=== PATIENT | male | born 1990 | race Hispanic/Latino ===

== ENCOUNTER 2021-08-11 10:25 | Observation (INO) | payer SELFPAY ==
[~2021-08-11] VITALS: Ht 170.2 cm; Wt 79.0 kg
--- NOTE | 2021-08-11 10:30 | NUR ---
PATIENT TO ROOM WITH A STEADY GAIT.
[2021-08-11 11:02] LABS: HEMATOCRIT 44.9 % (39.0-50.0); HEMOGLOBIN 15.9 g/dl (14.0-18.0); IMMATURE GRANULOCYTES 0.3 % (0.0-5.0); MEAN CELL VOLUME 87.5 fL CALC (80.0-100.0); MEAN CORPUSCULAR HGB CONC 35.4 g/dL CAL (32.0-36.0); RED BLOOD COUNT 5.13 mill/uL (4.70-6.10); RED CELL DISTRI WIDTH 11.9 % (11.5-15.5)
[2021-08-11 11:14] LABS: ALBUMIN 4.4 g/dL (3.2-5.0); ALKALINE PHOSPHATASE 58 u/l (38-126); AMYLASE 64 u/l (30-110); BILIRUBIN, TOTAL 0.5 mg/dL (0.0-1.4); BUN 15 mg/dL (9-20); BUN/CREATININE RATIO 21 (12-20 (CALC)); CARBON DIOXIDE 23 mmol/l (22-30); CHLORIDE 105 mmol/l (95-108); CREATININE 0.7 mg/dL (0.7-1.3); GFR > 60 ML/MIN (>=60 (CALC)); GFR FOR AFR.AMER. > 60 ML/MIN (>=60 (CALC)); LIPASE 58 u/l (23-300); POTASSIUM 4.1 mmol/l (3.5-5.1); SGOT/AST 35 u/l (17-59); TOTAL PROTEIN 7.9 g/dL (6.3-8.2)
[2021-08-11 11:20] LABS: ANION GAP 14 (6-22 (CALC)); SODIUM 138 mmol/l (137-146)
[2021-08-11 12:52] LABS: URINE BILIRUBIN - DIPSTICK NEGATIVE (NEGATIVE); URINE BLOOD DIPSTICK NEGATIVE (NEGATIVE); URINE COLOR YELLOW; URINE GLUCOSE - DIPSTICK NEGATIVE (NEGATIVE); URINE KETONE NEGATIVE (NEGATIVE); URINE LEUK ESTERASE NEGATIVE (NEGATIVE); URINE PH 7.5 (4.5-8.0); URINE PROTEIN - DIPSTICK NEGATIVE (NEG-TRACE); URINE UROBILINOGEN - DIPSTICK 0.2 E.U./dL (0.2)
[2021-08-11 12:57] LABS: URINE NITRITE - DIPSTICK NEGATIVE (Negative)
--- NOTE | 2021-08-11 14:28 | NUR ---
PATIENT WAS VOMITING AND IN SEVERE PAIN IN IMAGING. MEDICATED WITH ZOFRAN AND MORPHINE.
--- NOTE | 2021-08-11 15:00 | NUR ---
REPORT GIVEN TO CHATA.
[2021-08-11 15:17] VITALS: BP 133/64
[2021-08-11 15:30] VITALS: BP 133/64
--- NOTE | 2021-08-11 16:21 | NUR ---
RECEIVE REPORT FROM [facility] ED NURSE. PATIENT ALERT AND ORIENTED X3. PATIENT REPORT AND OBSERVE A LOT OF ABDOMINAL PAIN. NOTIFY TO DR. WHIPPLE FOR EXTRA MEDICINE DOSE. COMPLETE ADMISSION PROCESS EDICATE PATIEN ABOUT DIAGNOSIS, PAIN MANAGEMENT, NURSING CARE AND CLINICAL INTERVENTIONS. PATIENT REFER UNDERSTAND
[2021-08-11 19:00] VITALS: BP 111/65
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
--- NOTE | 2021-08-11 20:46 | NUR ---
PT RETURNED FROM RADIOLOGY, NO SIGNS OF DISTRESS NOTED, RESP EVEN AND UNLABORED. PT DENIES ANY NEEDS AT THIS TIME, IVF RECONNECTED. DISCUSSED LOVENOX PT DECLINED. STATES HE WILL AMBULATE IN ROOM. CALL LIGHT IN REACH,CONTINUE TO MONITOR.
--- NOTE | 2021-08-12 | NUR ---
PT RESTING IN BED, DISCUSSED IV ZOSYN, VERBALIZED UNDERSTANDING. QUESTIONS ANSWERED, VOICES NO C/O PAIN OR NAUSEA, CALL LIGHT IN REACH,CONTINUE TO MONITOR.
--- NOTE | 2021-08-12 03:52 | NUR ---
PT RESTING IN BED WITH EYES CLOSED, EASILY AROUSED TO VERBAL STIMULI, PT HAS A BP OF 90/45, DENIES ANY DIZZYNESS OR LIGHTHEADEDNESS. PT VOICES NO NEEDS OR COMPLAINTS AT THIS TIME. INSTRUCTED TO CALL FOR ASSISTANCE, VERBALIZED UNDERSTANDING. CALL LIGHT IN REACH,CONTINUE TO MONITOR.
[2021-08-12 04:00] VITALS: BP 90/45
--- NOTE | 2021-08-12 06:00 | NUR ---
PT RESTING IN BED, NO SIGNS OF DISTRESS NOTED, RESP EVEN AND UNLABORED. PT VOICES NO NEEDS OR COMPLAINTS AT THIS TIME, MEDICATED PER MAR, CALL LIGHT IN REACH,CONTINUE TO MONITOR.
[2021-08-12 06:48] LABS: HEMATOCRIT 42.2 % (39.0-50.0); IMMATURE GRANULOCYTES 0.2 % (0.0-5.0); MEAN CELL VOLUME 91.9 fL CALC (80.0-100.0); MEAN CORPUSCULAR HGB 30.5 pG CALC (26.0-32.0); MEAN CORPUSCULAR HGB CONC 33.2 g/dL CAL (32.0-36.0); NEUT# 6.3 thou/uL (1.82-7.42); RED BLOOD COUNT 4.59 mill/uL (4.70-6.10); RED CELL DISTRI WIDTH 12.3 % (11.5-15.5)
[2021-08-12 07:02] LABS: ALKALINE PHOSPHATASE 42 u/l (38-126); ANION GAP 13 (6-22 (CALC)); BILIRUBIN, TOTAL 0.6 mg/dL (0.0-1.4); BUN 15 mg/dL (9-20); BUN/CREATININE RATIO 17 (12-20 (CALC)); CARBON DIOXIDE 22 mmol/l (22-30); CHLORIDE 110 mmol/l (95-108); CREATININE 0.9 mg/dL (0.7-1.3); GFR > 60 ML/MIN (>=60 (CALC)); GFR FOR AFR.AMER. > 60 ML/MIN (>=60 (CALC)); POTASSIUM 3.9 mmol/l (3.5-5.1); SGOT/AST 24 u/l (17-59); SODIUM 141 mmol/l (137-146)
[2021-08-12 07:03] LABS: ALBUMIN 3.4 g/dL (3.2-5.0); TOTAL PROTEIN 6.3 g/dL (6.3-8.2)
[2021-08-12 07:46] VITALS: BP 124/60
--- NOTE | 2021-08-12 08:00 | NUR ---
PT GOT OUT OF SHOWER. NO DISTRESS NOTED. EVEN AND UNLABORED RESPIRATIONS; CLEAR LUNG BURNETT UPON AUSCULTATION. ACTIVE BOWEL SOUNDS X4 QUADRANTS; SOFT, TENDER ABDOMEN. IV SITE HEALTHY AND PATENT. SAFETY PRECAUTIONS IN PLACE. CALL LIGHT WITHIN REACH.
--- NOTE | 2021-08-12 12:30 | NUR ---
PT SITTING IN BED. NO DISTRESS NOTED. PT TOLERATED REGULAR DIET. PT GETTING READY TO BE DISCHRGED PER DR'S ORDERS. CALL LIGHT WITHIN REACH.
[2021-08-12 15:05] VITALS: BP 144/81
--- NOTE | 2021-08-12 15:45 | NUR ---
PT SITTING IN BED. NO DISTRESS NOTED. PT READY TO BE DISCHARGE. IV REMOVED; CATHETER INTACT UPON REMOVAL. PT TOLERATED WELL. CALL LIGHT WITHIN REACH.
--- NOTE | 2021-08-12 16:11 | NUR ---
Discharge instructions given. Patient verbalizes understanding of same. Discharged in stable condition via Ambulatory to Home with staff. All belongings sent with pt.
== END 2021-08-12 16:08 | disposition home or self-care (01) | DRG 390 ==
LOC: ED 10:25 → ED-I 12:30 → ED 12:52 → MS2 12:53
PROVIDERS: ADMIT Internal Medicine; ATTEND Internal Medicine
DX: K56.600 Partial intestinal obstruction, unspecified as to cause (principal); F17.200 Nicotine dependence, unspecified, uncomplicated; Z20.822 Contact with and (suspected) exposure to COVID-19
CPT/HCPCS: G0378; J1650; Q9967